=== PATIENT | male | born 1995 ===

== ENCOUNTER 2020-10-29 19:59 | Emergency (ER) | payer SELFPAY ==
[~2020-10-29] VITALS: Ht 180.3 cm; Wt 129.8 kg
--- NOTE | 2020-10-29 20:17 | NUR ---
pt walked back to this rns room at this time
--- NOTE | 2020-10-29 20:31 | NUR ---
pt came into ed tonight for a GARDUNO, cough and body aches. states he already had covid back in february, and that "i think i just have a cold from the cold weather here." pt nad, resting on gurney, appears comfortable, slightly diaphoretic. pt placed on spo2/bp/ecg monitoring at this time. bed in lowest, rails engaged, call light on lap, denies additional needs at this time. wctm. waiting for erp eval.
--- NOTE | 2020-10-29 20:45 | NUR ---
Jordin MÉNDEZ at for eval and poc. no change in pt condition at this time. ayesha.
[2020-10-29] MEDS ORDERED: ACETAMINOPHEN 325 MG TABLET PO ONE (21:00)
[2020-10-29] MEDS ORDERED: SODIUM CHLORIDE 0.9% 1,000ML IVBOLUS ONE (21:00)
[2020-10-29] MEDS ORDERED: ACETAMINOPHEN 325 MG TABLET ONE (21:01)
[2020-10-29 21:10] LABS: BASOPHILS % (AUTO) 1 % (0-1); EOSINOPHILS % (AUTO) 1 % (1-7); LYMPHOCYTES % (AUTO) 18 % (22-44); MEAN CORPUSCULAR HEMOGLOBIN 29.3 pg (27.5-34.5); MEAN CORPUSCULAR HGB CONC 34.2 g/dL (33.2-36.2); MEAN PLATELET VOLUME 8.2 fL (7.4-10.4); MONOCYTES % (AUTO) 8 % (2-9); NEUTROPHILS % (AUTO) 73 % (42-75); PLATELET COUNT 312 x10^3/uL (130-400); RED BLOOD COUNT 4.82 x10^6/uL (4.38-5.82); RED CELL DISTRIBUTION WIDTH 14.3 % (9.4-14.8)
[2020-10-29 21:11] LABS: MD NO
[2020-10-29 21:22] LABS: ALBUMIN 3.3 g/dL (3.4-5.0); ANION GAP 8 mmol/L (5-15); CALCIUM 8.8 mg/dL (8.5-10.1); CHLORIDE 105 mmol/L (98-107); CREATININE 0.51 mg/dL (0.7-1.3)
--- NOTE | 2020-10-29 21:55 | NUR ---
PT RESTING ON JEREMI, RIDGE, NEW FLU SWAB SAMPLE DELIVERED TO LAB. PT DENIES ADDITIONAL QUESTIONS OR NEEDS, APPEARS LESS DIAPHORETIC AT THIS TIME. NO OTHER CHANGES IN CONDITION. BED IN LOWEST, RAILS ENGAGED, CALL LIGHT ON LAP, [facility].
--- NOTE | 2020-10-29 22:14 | NUR ---
original flu swab back with a/b, new swab obtained and walked to lab for testing. pt nad, denies additional needs, wctm.
[2020-10-29 22:32] LABS: RAPID INFLUENZA A Negative (Negative); RAPID INFLUENZA B POSITIVE (Negative)
[2020-10-29 22:49] VITALS: BP 118/81
--- NOTE | 2020-10-29 23:00 | NUR ---
Patient given discharge instructions and they have confirmed that they understand the instructions. Patient ambulatory with steady gait. nad, provided work noted, denies additional questions or needs at this time. no personal belongings left in room after dc.
== END 2020-10-29 23:09 | disposition home or self-care (01) ==
LOC: ED 22:40
DX: J10.1 Influenza due to other identified influenza virus with other respiratory manifestations (principal); Z20.822 Contact with and (suspected) exposure to COVID-19; B34.9 Viral infection, unspecified; R00.0 Tachycardia, unspecified
CPT/HCPCS: 71045; 80048; 82040; 85025; 87400; 87635; 93005; 96360; 99285; J7030

== ENCOUNTER 2021-01-18 16:45 | Emergency (ER) | payer SELFPAY ==
[~2021-01-18] VITALS: Ht 180.3 cm; Wt 129.6 kg
--- NOTE | 2021-01-18 17:25 | NUR ---
HERD TESTER: PT WALKED BACK FROM LOBBY TO ROOM AT THIS TIME. STEADY UPON AMBULATION. NO ACUTE DISTRESS NOTED.
[2021-01-18 17:51] LABS: BASOPHILS % (AUTO) 1 % (0-1); EOSINOPHILS % (AUTO) 1 % (1-7); LYMPHOCYTES % (AUTO) 18 % (22-44); MEAN CORPUSCULAR HGB CONC 34.3 g/dL (33.2-36.2); MEAN PLATELET VOLUME 8.3 fL (7.4-10.4); MONOCYTES % (AUTO) 5 % (2-9); NEUTROPHILS % (AUTO) 76 % (42-75); PLATELET COUNT 308 x10^3/uL (130-400); RED BLOOD COUNT 4.94 x10^6/uL (4.38-5.82); RED CELL DISTRIBUTION WIDTH 14.4 % (9.4-14.8)
[2021-01-18 17:52] LABS: MD NO
[2021-01-18 17:59] LABS: ALANINE AMINOTRANSFERASE 48 U/L (12-78); ALBUMIN 3.3 g/dL (3.4-5.0); ANION GAP 6 mmol/L (5-15); CALCIUM 8.4 mg/dL (8.5-10.1); CHLORIDE 107 mmol/L (98-107); CREATININE 0.42 mg/dL (0.7-1.3)
[2021-01-18] MEDS ORDERED: SODIUM CHLORIDE 0.9% 1,000ML IVBOLUS ONE (18:00)
[2021-01-18] MEDS ORDERED: SODIUM CHLORIDE FLUSH 10ML SYR IVF ONE (18:00)
[2021-01-18 18:01] LABS: ALKALINE PHOSPHATASE 127 U/L (45-117); BILIRUBIN,TOTAL 1.1 mg/dL (0.2-1.0); TOTAL PROTEIN 7.5 g/dL (6.4-8.2)
[2021-01-18 18:30] VITALS: BP 139/94
== END 2021-01-18 19:15 | disposition home or self-care (01) ==
LOC: ED 19:12
DX: R11.2 Nausea with vomiting, unspecified (principal); R51.9 Headache, unspecified; R42 Dizziness and giddiness
CPT/HCPCS: 36415; 80053; 83690; 85025; 96360; 99283; J7030